=== PATIENT | male | born 1990 | race Caucasian/White ===

== ENCOUNTER 2024-04-14 03:20 | Observation (INO) ==
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
[2024-04-14] MEDS: OPTIRAY 320 150ml IV ONE (04:24)
[2024-04-14 04:35] LABS: Basophils # (auto) 0.08 K/uL (0.00-0.20); Basophils % (auto) 0.5 %; Eosinophils # (auto) 0.02 K/uL (0.00-0.50); Eosinophils % (auto) 0.1 %; Hematocrit (blood only) 40.2 % (42.0-52.0); Hemoglobin 13.4 g/dl (14.0-18.0); Immature Granulocytes # (auto) 0.07 K/uL (0.01-0.20); Immature Granulocytes % (auto) 0.4 %; Lymphocytes # (auto) 2.31 K/uL (1.20-3.40); Mean Corpuscular Hemoglobin 28.9 pg (25.0-34.0); Mean Corpuscular Hgb Conc 33.3 g/dL (32.0-36.0); Mean Corpuscular Volume 86.6 fL (80.0-100.0); Mean Platelet Volume 8.8 fL (9.4-12.4); Monocytes % (auto) 9.7 %; Neutrophils # (auto) 12.37 K/uL (1.40-6.50); Neutrophils % (auto) 75.3 %; Platelet Count 313 K/uL (130-400); RDW Coefficient of Variation 12.2 % (11.5-14.5); RDW Standard Deviation 38.9 fL (36.4-46.3); Red Blood Count 4.64 M/uL (4.70-6.10); White Blood Count 16.45 K/ul (4.8-10.8)
[2024-04-14 04:37] LABS: Albumin Globulin Ratio 1.3 (0.9-2); Albumin Level 4.3 gm/dl (3.4-5.0); BUN Creatinine Ratio 14.6 (10-20); Bilirubin,Total 0.6 mg/dl (0.2-1.0); Calcium 9.3 mg/dl (8.6-10.3); Creatinine Clr Calc Pharmacy 118.1 ml/min; Est GFR (African American) 130.2 ml/min; Est GFR (Non-African American) 112.3 ml/min; Globulin 3.4 gm/dl (2.5-4.0); Total Protein 7.7 gm/dl (6.0-8.3)
[2024-04-14 04:45] LABS: Troponin I High Sensitivity 3.7 pg/ml (0-20)
--- NOTE | 2024-04-14 04:46 | CT Scan Report ---
Exam(s): CTA CHEST IV Amt: 118 cc's optiray 320 EXAM: CT Angiography Chest With Intravenous Contrast CLINICAL HISTORY: PE. TECHNIQUE: Axial computed tomographic angiography images of the chest with intravenous contrast. CTDI is 18.96 mGy and DLP is 531.81 mGy-cm. Automated exposure control was utilized for the study. A dose lowering technique was utilized adhering to the principles of ALARA. MIP reconstructed images were created and reviewed. COMPARISON: No relevant prior studies available. FINDINGS: Limitations: There is respiratory artifact, which degrades image quality on multiple image slices. Pulmonary arteries: Pulmonary emboli noted involving the proximal subsegmental (fourth order) branches serving the left lower lobe. No other definite pulmonary emboli identified. Aorta: No acute findings. No thoracic aortic aneurysm. Lungs: Subsegmental opacities noted involving both lower lobes, left greater than right. Pleural space: Trace hypodense left pleural effusion. No loculation. No pneumothorax. Heart: The cardiac chambers are normal in caliber. No CT evidence for right heart strain. Mediastinum: No mediastinal traumatic injury. Bones/joints: No definite acute osseous abnormality. No dislocation. Soft tissues: Unremarkable. Lymph nodes: Unremarkable. No enlarged lymph nodes. IMPRESSION: 1. Pulmonary emboli noted involving the proximal subsegmental (fourth order) branches serving the left lower lobe. No other definite pulmonary emboli identified. No CT evidence for right heart strain. 2. Subsegmental opacities noted involving both lower lobes, left greater than right. Favor atelectasis over pneumonia. However, a component of contusive injury involving the left lower lobe is also a diagnostic consideration. 3. Trace hypodense left pleural effusion. No loculation. No pneumothorax. Communications: Call Doctor Pulmonary Embolism Electronically signed by: Walter Cao MD 04/14/24 04:45 AM
[2024-04-14 04:59] LABS: Partial Thromboplastin Ratio 0.9; Partial Thromboplastin Time 24 Seconds (21-31); Prothrombin Time 10.9 Seconds (9.0-12.0)
[2024-04-14] MEDS: ONDANSETRON INJ 2 MG/ML 2 ML VIAL IV STA (05:21)
[2024-04-14] MEDS: HYDROmorphone INJ 0.5 MG/0.5 ML SYR IV STA (05:23)
[2024-04-14] MEDS: cefTRIAXone SODIUM 1,000 MG/50 ML BAG IV STA (05:27)
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
[2024-04-14] MEDS: HEPARIN SODIUM/DEXTROSE 25,000 UNITS/500 ML BAG IV SCH (06:29)
[2024-04-14] MEDS: oxyCODONE/ACETAMINOPHEN 10-325 TAB PO STA (06:29)
[2024-04-14] MEDS: HYDROmorphone INJ 1 MG/ML SYRINGE IV STA (06:29)
[2024-04-14] MEDS: Heparin IV Adult Wt-Based Standard *NO* INITIAL Bolus Protocol IV STA (06:35)
[2024-04-14] MEDS ORDERED: CYCLOBENZAPRINE HCL 5 MG TAB PO PRN (07:22)
[2024-04-14] MEDS ORDERED: ONDANSETRON INJ 2 MG/ML 2 ML VIAL IV PRN (07:22)
[2024-04-14] MEDS ORDERED: HYDROmorphone INJ 0.5 MG/0.5 ML SYR IV PRN (07:22)
--- NOTE | 2024-04-14 07:27 | Electrocardiogram Report ---
Test Reason : Blood Pressure : / mmHG Vent. Rate : 118 BPM Atrial Rate : 118 BPM P-R Int : 152 ms QRS Dur : 080 ms QT Int : 322 ms P-R-T Axes : 038 021 011 degrees QTc Int : 451 ms Sinus tachycardia Possible Left atrial enlargement Nonspecific ST abnormality Abnormal ECG No previous ECGs available Confirmed by Alberto Alfonso ([id number]) on 04/14/2024 7:26:46 AM Referred By: REFERRED SELF Confirmed By:Gal Alfonso
[2024-04-14] MEDS: LIDOCAINE 5% 1 PATCH TD STA (08:00)
[2024-04-14] MEDS: ACETAMINOPHEN 325 MG TAB PO SCH (08:01)
[2024-04-14] MEDS: oxyCODONE HCL IR 5 MG TAB (IMMEDIATE RELEASE) PO SCH (08:01)
--- NOTE | 2024-04-14 08:16 | XRay Report ---
SINGLE VIEW CHEST CLINICAL HISTORY: Dyspnea. Pulmonary embolus. FINDINGS: An AP, portable, upright chest radiograph is correlated with chest CT performed the same da y 04/14/2024. The cardiomediastinal silhouette is unremarkable. There is left basilar consolidation. Sm all pleural effusions are noted. Atelectasis is seen at the right lung base. No pneumothorax is seen. The bony thorax is grossly intact. IMPRESSION: 1. Left basilar consolidation could represent atelectasis, pneumonia, and/or possibly a pulmonary inf arct given the findings of pulmonary embolus on CT. Clinical correlation will be required and radiogr aphic follow-up to resolution is recommended. 2. Small pleural effusions. ACT 112: Negative or not required by law. Electronically signed by: Han Spears M.D. 04/14/2024 8:15 AM
[2024-04-14] MEDS: GABAPENTIN 100 MG CAP PO SCH (09:48)
[2024-04-14] MEDS: PANTOprazole 40 MG TAB PO SCH (09:48)
[2024-04-14] MEDS: AZITHROMYCIN 500 MG in DEXTROSE 5% 250 ML IV SCH (09:49)
[2024-04-14] MEDS: CEFEPIME 2,000 MG in SYRINGE 0 ML IV SCH (12:03)
[2024-04-14 13:16] LABS: ANTI-Xa, UFH(UnfractionatedHep 0.36 IU/ml (0.3-0.7)
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
[2024-04-14] MEDS: HYDROmorphone INJ 0.5 MG/0.5 ML SYR IV PRN (16:02)
[2024-04-14] MEDS: [UNRECOGNIZED DRUG - REMARK] ONE (18:32)
[2024-04-14] MEDS: POLYETHYLENE (MIRALAX) 17 GM PACK PO PRN (20:03)
[2024-04-14] MEDS: APIXABAN 5 MG TABLET PO SCH (20:35)
[2024-04-15 07:40] LABS: Hematocrit (blood only) 36.1 % (42.0-52.0); Hemoglobin 12.1 g/dl (14.0-18.0); Mean Corpuscular Hemoglobin 28.9 pg (25.0-34.0); Mean Corpuscular Hgb Conc 33.5 g/dL (32.0-36.0); Mean Corpuscular Volume 86.4 fL (80.0-100.0); Mean Platelet Volume 8.9 fL (9.4-12.4); Platelet Count 239 K/uL (130-400); RDW Standard Deviation 38.1 fL (36.4-46.3); Red Blood Count 4.18 M/uL (4.70-6.10); White Blood Count 10.45 K/ul (4.8-10.8)
[2024-04-15 08:00] LABS: BUN Creatinine Ratio 13.2 (10-20); Calcium 9.3 mg/dl (8.6-10.3); Creatinine Clr Calc Pharmacy 154.5 ml/min; Est GFR (African American) 145.4 ml/min; Est GFR (Non-African American) 125.5 ml/min
--- NOTE | 2024-04-15 10:45 | Ultrasound Report ---
BILATERAL LOWER EXTREMITY VENOUS DOPPLER HISTORY: Acute pain and swelling of the lower legs r/o DVT COMPARISON STUDY: None. FINDINGS: There is normal compressibility, flow, and augmentation within the right lower extremity de ep venous structures. Partially occlusive thrombus within the left profunda femoris vein extends for a length of a few centimeters, age indeterminate. IMPRESSION: 1. Age-indeterminate partially occlusive thrombus within the left profunda femoris vein. 2. No right lower extremity DVT. ACT 112: Negative or not required by law. Electronically signed by: Spencer Cowan M.D. 04/15/2024 10:43 AM
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
== END 2024-04-15 13:01 | disposition home or self-care (01) | DRG 175 ==
LOC: ED 03:20 → EDINP 06:08 → INTOOBSV 06:08 → SUATTDRO 06:08 → 2N 07:21